=== PATIENT | male | born 1990 | race African-American/Black ===

== ENCOUNTER 2024-03-05 22:16 | Emergency (ER) | payer BC ==
[~2024-03-05] VITALS: Ht 175.3 cm; Wt 115.2 kg
[~2024-03-05 22:16] MED LIST: ACID REFLUX; CALCIUM; MAGNESIUM; SUCRALFATE1 GM PO; [UNRECOGNIZED DRUG - OTHER]
[2024-03-05 22:42] VITALS: TEMP 98.6
[2024-03-05 22:57] LABS: BASOPHILS # (AUTO) 0.1 (0.0-0.1); BASOPHILS % 1.2 % (0.0-1.0); EOSINOPHILS # (AUTO) 0.2 (0.0-0.4); EOSINOPHILS % 2.2 % (0.0-6.0); HEMATOCRIT 49.2 % (38.2-49.6); HEMOGLOBIN 16.2 g/dL (14.0-18.0); LYMPHOCYTES # (AUTO) 3.6 (1.0-3.2); LYMPHOCYTES % 36.2 % (18.0-39.1); MEAN CORPUSCULAR HEMOGLOBIN 27.4 pg (28-32); MEAN CORPUSCULAR HGB CONC 32.9 g/dL (31-35); MEAN CORPUSCULAR VOLUME 83.2 fL (81-99); MONOCYTES # (AUTO) 0.8 (0.2-0.8); MONOCYTES % 8.1 % (4.4-11.3); NEUTROPHILS # (AUTO) 5.2 (2.1-6.9); NEUTROPHILS % 52.2 % (38.7-80.0); PLATELET COUNT 277 x10e3/uL (140-360); RED BLOOD COUNT 5.91 x10e6/uL (4.3-5.7); RED CELL DISTRIBUTION WIDTH 13.4 % (11.7-14.4); WHITE BLOOD COUNT 9.97 x10e3/uL (4.8-10.8)
[2024-03-05] MEDS: ONDANSETRON HCL INJ 2MG/ML 2ML 2 MG/ML VIAL IV STA (22:57)
[2024-03-05] MEDS: FAMOTIDINE 20 MG/2 ML VIAL IV STA (22:57)
[2024-03-05] MEDS: SODIUM CHLORIDE 0.9% 1000ML 1,000 ML IV STA (22:58)
[2024-03-05 23:15] LABS: ALBUMIN 4.2 g/dL (3.5-5.0); ALBUMIN/GLOBULIN RATIO 1.2 (0.8-2.0); BILIRUBIN,TOTAL 0.2 mg/dL (0.2-1.2); CALCIUM 9.4 mg/dL (8.4-10.2); CREATININE, SERUM 1.15 mg/dL (0.72-1.25); TOTAL PROTEIN 7.6 g/dL (6.5-8.1)
[2024-03-05 23:18] LABS: TROPONIN I 0.008 ng/mL (0-0.300)
[2024-03-05] MEDS ORDERED: IOPAMIDOL 370 MG/ML 100 ML INFUS..BTL INJ ONE (23:28)
[2024-03-05 23:32] LABS: CLARITY,URINE CLEAR (CLEAR); COLOR,URINE YELLOW (YELLOW); GLUCOSE, URINE NEGATIVE (NEGATIVE); KETONES,URINE NEGATIVE (NEGATIVE); LEUKOCYTE ESTERASE ,URINE NEGATIVE (NEGATIVE); NITRITE,URINE NEGATIVE (NEGATIVE); PH,URINE 6 (5 - 7); PROTEIN,URINE DIPSTICK NEGATIVE (NEGATIVE)
[2024-03-05 23:33] LABS: BILIRUBIN,URINE NEGATIVE (NEGATIVE); URINE UROBILINOGEN 0.2 mg/dL (0.2 - 1)
[2024-03-05 23:35] LABS: BACTERIA,URINE RARE /HPF; MUCUS,URINE MODERATE (RARE); RBC,URINE 0-5 /HPF (0-5); WBC,URINE (MAN) 0-5 /HPF (0-5)
[2024-03-06 01:43] VITALS: PULSE 79; RESP 17
[2024-03-06] MEDS ORDERED: PEPCID20 MG PO (02:05)
[2024-03-06] MEDS ORDERED: DICYCLOMINE HCL10 MG PO (02:05)
[2024-03-06 02:21] VITALS: BP 110/98; PULSE 74; RESP 17; TEMP 97.9; O2SAT 100
== END 2024-03-06 02:22 | disposition home or self-care (01) ==
LOC: ER 22:25
DX: R10.13 Epigastric pain (principal); R14.0 Abdominal distension (gaseous); R11.0 Nausea; K21.9 Gastro-esophageal reflux disease without esophagitis; R94.31 Abnormal electrocardiogram [ECG] [EKG]
CPT/HCPCS: 36415; 74177; 80053; 80320; 81001; 82550; 83690; 84484; 85025; 93005; 99284; J2405; J7030; Q9967

== ENCOUNTER 2024-08-22 07:26 | Emergency (ER) | payer BC ==
[~2024-08-22] VITALS: Ht 175.3 cm; Wt 109.8 kg
[~2024-08-22 07:26] MED LIST changes: +DICYCLOMINE HCL10 MG PO; +PEPCID20 MG PO
[2024-08-22 07:41] VITALS: PULSE 89; RESP 15; TEMP 98.1; O2SAT 100
[2024-08-22] MEDS ORDERED: FAMOTIDINE20 MG PO (07:43)
[2024-08-22] MEDS ORDERED: OMEPRAZOLE40 MG PO (07:43)
[2024-08-22] MEDS ORDERED: METRONIDAZOLE250 MG PO (07:43)
[2024-08-22] MEDS ORDERED: TETRACYCLINE H500 MG PO (07:44)
[2024-08-22] MEDS ORDERED: CARAFATE1 GM PO (07:45)
[2024-08-22] MEDS ORDERED: ONDANSETRON ODT4 MG PO (07:45)
[2024-08-22] MEDS ORDERED: ONDANSETRON HCL 4 MG ORAL DISINTEGRATING TAB ONE (07:54)
[2024-08-22] MEDS: LIDOCAINE VISC 2% SOLN 15 ML UDC PO ONE (08:01)
[2024-08-22] MEDS: BELLADONNA ALK/PHENOBARBITAL 5 ML UDC PO STA (08:01)
[2024-08-22] MEDS: MAGNESIUM/ALUMINUM/SIMETHICONE 30 ML UDC PO ONE (08:01)
[2024-08-22] MEDS: ONDANSETRON HCL 4 MG ORAL DISINTEGRATING TAB PO ONE (08:01)
== END 2024-08-22 08:28 | disposition home or self-care (01) ==
LOC: ER 07:30
DX: R10.13 Epigastric pain (principal); R11.2 Nausea with vomiting, unspecified; K21.9 Gastro-esophageal reflux disease without esophagitis; Z87.19 Personal history of other diseases of the digestive system
CPT/HCPCS: 99284; Q0162